=== PATIENT | male | born 1995 | race Caucasian/White ===

== ENCOUNTER 2023-01-17 09:37 | Emergency (ER) | payer MEDICAID, SELFPAY ==
--- NOTE | 2023-01-17 09:30 | RT.EKG_ITS ---
APPROVED REPORT Exam: Resting ECG Reason for Exam: chest pain Patient Location: E HR:70 bpm ECG Measurements Heart Rate 70 AXIS AZ 150 P 29 QRSd 90 QRS 81 QT 398 T 1 QTc 431 Conclusion Sinus rhythm...V-rate 60- [address] segment or T wave abnormalities to suggest occlusive CO
[2023-01-17 09:42] VITALS: BP 137/84; PULSE 53; RESP 15; TEMP 36.9; O2SAT 99
--- NOTE | 2023-01-17 09:49 | ED.GENADUL_ITS ---
Discharge Plan Disposition Patient Disposition: Home Condition: Good Discharge Details Clinical Impression: Chest pain Primary Care Provider: Unknown,Unknown ED Provider: Bouchra Mckeon Home Meds and New Rx's Prescriptions: Continued methylphenidate HCl 10 MG tablet 1 tab PO PRN Qty: 30 Patient Comments: no longer taking 01/17/23 CT Rx Instructions: 1 tablet in afternoon as needed for homework methylphenidate HCl [Concerta] 54 MG tablet extended release 24hr 1 tab PO DAILY Qty: 30 Patient Comments: No longer taking 01/17/23 CT Rx Instructions: 1 tab po qam Discharge Instructions Instructions: Chest Pain (ED) Additional Instructions: As we discussed, your EKG, chest x-ray and labs are reassuring here today. Please continue with your healthier diet and try to incorporate more protein options such as fish or chicken instead of just strictly red meat. Continue to encourage hydration. Please track your symptoms and try to find any type of triggers such as certain foods, certain activities, respiratory irritants versus other. You are welcome to go immediately [facility], I have called them and let them know that you may be coming over to discuss insurance. I have also asked her care management team to help with prompt follow-up with local primary care. If you develop any new or worsening symptoms please seek care urgently once again. I will call you with your cholesterol results once these have returned Discharge Data Discharge Date/Time-TO BE ENTERED AT DEPARTURE: 01/17/23 11:36 Medical Decision Making Patient is a pleasant 27-year-old male presenting today with chief complaint of left-sided chest pain that radiates into the left arm. He reports that he has had this discomfort intermittently for years but that it became much more consistent over the past 3 days and has not completely let up. It is worse with exertion, in particular when he is at work. He denies any cough. No increased pain with deep inspiration or cough. Denies any shortness of breath. No leg pain. No recent travel. No significant family cardiac history. He does not take any medications. He denies any cocaine or other illicit drug use. He is not an active smoker. He does occasionally consume alcohol. On exam, patient appears anxious but otherwise nontoxic. He is hemodynamically stable. No reproducible pain with palpation about the chest. No crepitus. Lungs are clear in all laird. Normal cardiac exam. No lower extremity edema. 2+ distal pulses, no calf tenderness. ECG was obtained, no acute ischemic changes. Reviewed by Dr. Mackey. While ACS is unlikely , he is having increased pain with exertion and is very anxious about this. Has been on keto diet x 6mo with 45lb weight loss. No shortness of breath and vital signs are not suggestive of a pulmonary embolism. He has no evidence to suggest dissection, infectious etiology. This could be musculoskeletal given what he does for work but he has not had any increased exertion or trauma. FINDINGS: 2 views: Heart size is normal.? The mediastinum is not widened. Lungs are clear.? No infiltrates nor pleural effusions. IMPRESSION: No acute pulmonary findings. Labs reviewed. No leukocytosis. Stable H&H. No significant abnormalities on CMP. Patient is requesting a total cholesterol. I also called [email or web address] initially, he had wanted to hold off on any accepts testing secondary to his lack of insurance but he specifically requesting this and knows the cost. We will add this on. We discussed that this could be anxiety driven. I encouraged that he keep a journal to see if this could also be associated with certain foods or exertion or other precipitating factors. We discussed his diet at length. He is very concerned that his keto diet could be driving him to have increased cholesterol that is causing his symptoms. We addressed these concerns at length. We discussed that his weight loss, increased blanced meals, are likely helping his overall cholesterol and I encouraged continued healthy lifestyle. Given his concerns, I did encourage increased fish/chicken, decreased red meat. Will call with cholesterol, this will not change acute management today. Also called [employer], they are expecting the atient to discuss insurance further. All of his questions and concerns were addressed. He is in agreement with this plan. Total cholesterol elevated at 281. I am hesitant to add on full lipid panel given cost, with his healthy lifestyle changes, I am curious what his HDL is. Have asked day time staff to call and discuss with patient and ensure he get f/u with PCP. HPI General Date/Time Provider Initiated Documentation: 01/17/23 09:39 . Limitations to Documentation: no limitations . Information obtained by: patient and RN notes reviewed . History of Present Illness 27 year old M presents to the emergency department with the chief complaint of chest pain, described as moderate and similar to prior episodes (reports he has had this intermittently for years), Quality is described as other (pressure), and is localized to the chest. Patient extremity (LUE). Patient started experiencing this day(s) (3) and it has been constant (has been intermittent past but currently is more constant). No relieving factors improve symptom(s), No exacerbating factors reported . Patient notes no other symptoms.. Patient did receive the following treatments prior to arrival, none Related Data Home Medications Medication Instructions Recorded Confirmed methylphenidate HCl 10 mg tablet 1 tab PO PRN #30 tabs 01/22/16 methylphenidate HCl 54 mg 1 tab PO DAILY #30 tab-caps 01/22/16 tablet,extended release 24 hr (Concerta) Allergies Allergy/AdvReac Type Severity Reaction Status Date / Time No Known Allergies Allergy Unverified 01/17/23 09:47 General Stated Complaint: Chest Pain CHIDI: 3 Review of Systems Constitutional Constitutional: Reports as per HPI, Denies chills, Denies fever(s), Denies headache(s), Denies lethargy and Denies poor appetite Eyes Eyes: Denies change in vision ENT Ears, Nose, Mouth, and Throat: Denies dizziness and Denies headache(s) Cardiovascular Cardiovascular: Reports as per HPI, Denies dyspnea and Denies dyspnea on exertion Respiratory Respiratory: Reports as per HPI, Denies chest congestion, Denies cough, Denies pain on inspiration, Denies dyspnea and Denies dyspnea on exertion Gastrointestinal Gastrointestinal: Reports as per HPI, Denies abdominal pain, Denies diarrhea, D enies nausea and Denies vomiting Genitourinary Genitourinary: Denies system reviewed and no additional complaints, except as documented (denies change in urinary habits) Musculoskeletal Musculoskeletal: Reports as per HPI and Denies back pain Integumentary/Breasts Skin/Breast: Reports as per HPI and Denies rash Neurologic Neurologic: Reports as per HPI, Denies dizziness and Denies headache(s) PFSH All Active Problems (Updated 01/17/23 @ 11:22 by BERKLEY Nix) Chest pain (Acute) Family History Mother Personal history of malignant neoplasm Cervical Father Diabetes Hyperlipidemia Sister No problems noted. Sister No problems noted. Sister No problems noted. Brother Diabetes Brother No problems noted. Other Substance abuse Social History Smoking/Tobacco Use Status: Never Smoking risk assessment performed?: Yes Alcohol Intake: current Alcohol Intake frequency: 3 or more drinks per day Alcohol type: beer Drug use: Never Substance use type: does not use Housing: apartment Do you feel safe at home: Yes Do you feel safe in your relationship?: Yes Exam Const General: cooperative, healthy appearing, comfortable, no acute distress and well developed Nutritional Appearance: average body habitus and well nourished Orientation: alert, awake and oriented x3 HENMT Head: normal to inspection Ears: hearing grossly normal bilaterally Mouth: moist mucous membranes Chest Chest: normal inspection of the chest, normal palpation of entire chest wall and no crepitus Resp Effort & Inspection: normal respiratory effort, able to speak in complete sentences and no respiratory distress Auscultation: clear to auscultation bilaterally, no rales, no rhonchi and no wheezes Cardio Rate: regular rate Rhythm: regular rhythm Heart Sounds: S1 normal and S2 normal GI Auscultation: normal bowel sounds Skin General skin exam: no rashes or lesions noted Trauma: no lacerations or abrasions Neuro General: patient alert, patient awake and patient oriented x3 Cognition: normal cognition Speech: speech normal Gait: normal gait Extrem General: normal to inspection, capillary refill normal, no pedal edema, no calf tenderness and normal gait Psych Appearance: grossly normal and well kempt Mental Status: mental status grossly normal Speech and Movement: speech and movement normal Course Vital Signs Vital signs: Vital Signs Temperature 36.9 C 01/17/23 09:42 Pulse 53 L 01/17/23 09:42 Respiratory Rate 15 01/17/23 09:42 Blood Pressure 137/84 01/17/23 09:42 Pulse Oximetry 99 01/17/23 09:42 Temperature 36.9 C 01/17/23 09:42 Temperature Source Oral 01/17/23 09:42 Pulse 53 L 01/17/23 09:42 Respiratory Rate 15 01/17/23 09:42 Respiratory Effort Non-Labored, Short of Breath 01/17/23 09:45 Blood Pressure 137/84 01/17/23 09:42 Blood Pressure Position Sitting 01/17/23 09:42 Pulse Oximetry 99 01/17/23 09:42 Oxygen Delivery Method Room Air 01/17/23 09:42 Oxygen Flow Rate 0 01/17/23 09:42 Pain Level 0 01/17/23 09:42 PAWSS Have you Been Recently Intoxicated or Drunk Within the Last 30 days?: Yes Have you Ever Experienced Previous Episodes of Alcohol Withdrawal?: No Have you ever Experienced Withdrawal Seizures?: No Have you ever Experienced Delirium Tremens(DT)s?: No Have you ever undergone Alcohol Rehabilitation Treatment (i.e, inpt ot outpatient treatment programs)?: No Have you ever Experienced Blackouts?: No Have you ever Combined Alcohol with other Downers within the last 90 days?: No Have you ever Combined Alcohol with any other Substance of Abuse during the last 90 days?: No Result: 1
[2023-01-17 10:17] LABS: Abs Immature Grans 0.02 10^3/uL (0.0-0.06); Absolute Basophil Count 0.03 10^3/uL (0.0-0.2); Absolute Eosinophil Count 0.08 10^3/uL (0.0-0.7); Absolute Lymphocyte Count 2.25 10^3/uL (1.2-3.4); Absolute Monocyte Count 0.52 10^3/uL (0.1-0.8); Absolute Neutrophil Count 3.02 10^3/uL (1.2-6.7); Basophils % 0.5; Eosinophils % 1.4; HCT 44.1 % (40.0-50.0); Immature Grans % 0.3; MCH 28.6 pg (27.0-33.0); MCV 84 fL (80-95); MPV 10.4 fL (8.0-11.0); Monocytes % 8.8; Platelet Count 213 10^3/uL (130-400); RBC 5.24 10^6/uL (4.36-5.78); RDW-SD 36.4 fL; WBC 5.92 10^3/uL (4.4-10.8)
--- NOTE | 2023-01-17 10:41 | DI.RAD_ITS ---
Exam(s) XR CHEST 2V PA LATERAL EXAM: XR CHEST 2V PA LATERAL CLINICAL HISTORY: CP, left arm pain. TECHNIQUE: 2D digital imaging was performed. COMPARISON: No exams were available for comparison FINDINGS: 2 views: Heart size is normal. The mediastinum is not widened. Lungs are clear. No infiltrates nor pleural effusions. IMPRESSION: No acute pulmonary findings. DATA REPOSITORY: RADIATION DOSE DELIVERED:
[2023-01-17 10:45] LABS: ALT 54 U/L (16-63); AST 18 U/L (15-37); Albumin 4.2 g/dL (3.4-5.0); Alkaline Phosphatase 91 U/L (46-116); Anion Gap 10.3 mmol/L (3-11); BUN 19 mg/dL (7-18); Bilirubin, Total 0.5 mg/dL (0.2-1.0); CO2 25.7 mmol/L (21.0-32.0); CREATININE 0.8 mg/dL (0.70-1.30); Calcium 9.2 mg/dL (8.5-10.1); Chloride 104 mmol/L (98-107); Glucose 112 mg/dL (74-106); Potassium 4.2 mmol/L (3.5-5.1); Sodium 140 mmol/L (136-145); Total Protein 7.5 g/dL (6.4-8.2); Troponin I < 50 ng/L (<or=60)
[2023-01-17] MEDS: Ibuprofen 600 MG TAB PO (10:59)
[2023-01-17 11:24] LABS: Cholesterol 281 mg/dL (<200)
--- NOTE | 2023-01-18 10:56 | NUR.NOTE ---
Nursing Note: in chart for referral check
--- NOTE | 2023-01-18 11:31 | W.EDPROG ---
Date of service: 01/18/23 Time of Service: 11:31 Medical Decision Making Care management called to verify PCP follow up and establishment of care. Spoke with Melissa Pacheco who will discuss with operations administrative assistant who tracks follow ups. Telephone Call made to patient to discuss elevated total cholesterol level, Voicemail box not set up unable to leave message. Discharge Plan Disposition Patient Disposition: Home Condition: Good Discharge Details Clinical Impression: Chest pain Primary Care Provider: Unknown,Unknown ED Provider: Bouchra Mckeon Home Meds and New Rx's Prescriptions: Continued methylphenidate HCl 10 MG tablet 1 tab PO PRN Qty: 30 Patient Comments: no longer taking 01/17/23 CT Rx Instructions: 1 tablet in afternoon as needed for homework methylphenidate HCl [Concerta] 54 MG tablet extended release 24hr 1 tab PO DAILY Qty: 30 Patient Comments: No longer taking 01/17/23 CT Rx Instructions: 1 tab po qam Discharge Instructions Instructions: Chest Pain (ED) Additional Instructions: As we discussed, your EKG, chest x-ray and labs are reassuring here today. Please continue with your healthier diet and try to incorporate more protein options such as fish or chicken instead of just strictly red meat. Continue to encourage hydration. Please track your symptoms and try to find any type of triggers such as certain foods, certain activities, respiratory irritants versus other. You are welcome to [facility], I have called them and let them know that you may be coming over to discuss insurance. I have also asked her care management team to help with prompt follow-up with local primary care. If you develop any new or worsening symptoms please seek care urgently once again. I will call you with your cholesterol results once these have returned Discharge Data Discharge Date/Time-TO BE ENTERED AT DEPARTURE: 01/17/23 11:36
== END 2023-01-17 11:36 | disposition home or self-care (01) ==
PROVIDERS: Emergency Provider Physician Assistant
DX: R07.9 Chest pain, unspecified (principal)
CPT/HCPCS: 36415; 80053; 93005; 99283; 71046; 82465; 84484; 85025; 93010

== ENCOUNTER 2023-10-19 08:13 | Emergency (ER) | payer MEDICAID, SELFPAY ==
[2023-10-19 08:14] VITALS: BP 153/78; PULSE 72; RESP 16; TEMP 37; O2SAT 98
--- NOTE | 2023-10-19 08:26 | W.ED.GENAD ---
Discharge Plan Disposition Patient Disposition: Home Condition: Stable Discharge Details Chief Complaint: RashLesion Clinical Impression: Tick bite ED Provider: Khalif Zuluaga Home Meds and New Rx's Prescriptions: No Action methylphenidate HCl 10 MG tablet 1 tab PO PRN Qty: 30 Patient Comments: no longer taking 01/17/23 CT Rx Instructions: 1 tablet in afternoon as needed for homework methylphenidate HCl [Concerta] 54 MG tablet extended release 24hr 1 tab PO DAILY Qty: 30 Patient Comments: No longer taking 01/17/23 CT Rx Instructions: 1 tab po qam Discharge Instructions Instructions: Tick Bite (ED) HPI General Date/Time Provider Initiated Documentation: 10/19/23 08:26. HPI Narrative: 27-year-old male noted embedded tick right chest wall, unclear how long it has been present. Related Data Home Medications Medication Instructions Recorded Confirmed methylphenidate HCl 10 mg tablet 1 tab PO PRN #30 tabs 01/22/16 methylphenidate HCl 54 mg 1 tab PO DAILY #30 tab-caps 01/22/16 tablet,extended release 24 hr (Concerta) Allergies Allergy/AdvReac Type Severity Reaction Status Date / Time No Known Allergies Allergy Unverified 10/19/23 08:19 General Stated Complaint: RashLesion CHIDI: 4 Review of Systems Narrative: Review of Systems Constitutional: negative Eyes: negative ENT: negative Cardiovascular: negative Respiratory: negative Gastrointestinal: negative : negative Musculoskeletal: negative Skin: Tick bite Neurologic: negative Psych: negative Exam Narrative Exam Narrative: Physical Examination General: alert, awake, cooperative, resting comfortably, no acute distress HEENT: normocephalic, atraumatic Skin: Small non engorged tick embedded right thoracic chest wall soft tissue, local erythema at site of attachment, no evidence of erythema migrans rash Neuro: AAOx3, normal speech, moving all extremities Course Vital Signs Vital signs: Vital Signs Temperature 37.0 C 10/19/23 08:14 Pulse 72 10/19/23 08:14 Respiratory Rate 16 10/19/23 08:14 Blood Pressure 153/78 H 10/19/23 08:14 Pulse Oximetry 98 10/19/23 08:14 Temperature 37.0 C 10/19/23 08:14 Temperature Source Skin 10/19/23 08:14 Pulse 72 10/19/23 08:14 Respiratory Rate 16 10/19/23 08:14 Blood Pressure 153/78 H 10/19/23 08:14 Blood Pressure Position Sitting 10/19/23 08:14 Pulse Oximetry 98 10/19/23 08:14 Oxygen Delivery Method Room Air 10/19/23 08:14 Oxygen Flow Rate 0 10/19/23 08:14 Pain Level 1 10/19/23 08:14 Medical Decision Making 27-year-old male presents with small and non engorged tick embedded right thoracic chest wall soft tissue, local irritation at bite site, no evidence of erythema migrans rash, afebrile nontoxic no systemic signs of illness, tick successfully removed with forceps, small amount of mouthparts still embedded in skin. Given the possibility that the tick has been present for greater than 36 hours patient given prophylactic dose of doxycycline 20 mg p.o. Given care instructions and strict return precautions. Patient will follow-up closely with primary care as needed. Quality:SDOH Health Related Social Needs: No Data to Display PFSH All Active Problems (Updated 10/19/23 @ 08:29 by Khalif Zuluaga MD) Tick bite (Acute) Family History (Updated 02/01/23 @ 11:06 by Jocelyn Irving) Mother Personal history of malignant neoplasm Cervical Father Diabetes Hyperlipidemia Brother Diabetes Alcohol use disorder Aunt Anxiety Maternal Grandmother Brain cancer Other Substance abuse Social History (Updated 02/01/23 @ 10:57 by Jocelyn Irving) Smoking/Tobacco Use Status: Former Tobacco Use Tobacco: How many years used: 4 Quit status: quit date established Smoking risk assessment performed?: Yes Alcohol Intake: current Alcohol Intake frequency: 3 or more drinks per day Alcohol type: beer Details: 2-3 times a week, 5-6 at a time, weekly more than 6. Drug use: Never Substance use type: does not use Adopted: No Caregiver/Support person: No Foster care: No Household members: spouse and children Housing: apartment Number of Children: 3 number of grandchildren: 0 Communication Needs: None Education Level: college Details: associated degree Do you need help understanding health information?: Never current occupation: Self- employed Pets and animals: No Sexually active: Yes Do you think of yourself as: straight/heterosexual Current gender identity: decline to answer What is your relationship status?: How often do you talk on the phone with friends or family?: three or more times per week How often do you get together with friends or relatives?: once per week Do you belong to any clubs or organized social groups?: no Panel score (0-1 are the most socially isolated patients): 2 What type of physical activity do you participate in: weight lifting Duration: > 90 minutes/day Frequency: 5-6 times per week Olivia/Presybeterian: Restorationist Special olivia needs: No Seatbelt use: sometimes Helmet use: No Drive intox or ride w/intox power truck driver: No Do you feel safe at home: Yes Do you feel safe in your relationship?: Yes
[2023-10-19] MEDS: Doxycycline Hyclate 100 MG CAP 200 MG PO (08:32)
== END 2023-10-19 08:43 | disposition home or self-care (01) ==
LOC: ER 08:39
PROVIDERS: Emergency Provider Emergency Medicine
DX: S20.361A Insect bite (nonvenomous) of right front wall of thorax, initial encounter (principal); W57.XXXA Bitten or stung by nonvenomous insect and other nonvenomous arthropods, initial encounter
CPT/HCPCS: 99283

== ENCOUNTER 2023-11-07 08:53 | Emergency (ER) | payer MEDICAID, SELFPAY ==
[2023-11-07 08:56] VITALS: BP 128/82; PULSE 74; RESP 14; TEMP 36.2; O2SAT 98
--- NOTE | 2023-11-07 09:00 | DI.RAD_ITS ---
Exam(s) XR ANKLE RT COMPLETE EXAM: XR ANKLE RT COMPLETE CLINICAL HISTORY: Ankle injury, swelling. TECHNIQUE: 2D digital imaging was performed of the right ankle. Three images were obtained. AP, la teral and oblique views were obtained. COMPARISON: No exams were available for comparison FINDINGS: BONES: No acute fracture is present. No bony destructive lesion is seen. There is a small enthesophy te at the posterior calcaneus. JOINTS: The ankle mortise is normally aligned. SOFT TISSUE: There is soft tissue swelling about the ankle particularly laterally. IMPRESSION: No acute fracture or dislocation. Soft tissue swelling of the ankle particularly laterally. DATA REPOSITORY: RADIATION DOSE DELIVERED:
--- NOTE | 2023-11-07 09:24 | ED.GENADUL_ITS ---
Discharge Plan Disposition Patient Disposition: Home Condition: Stable Discharge Details Clinical Impression: Moderate right ankle sprain Primary Care Provider: Unknown,Unknown ED Provider: Luh Mcdaniel Home Meds and New Rx's Prescriptions: New ibuprofen 600 mg tablet 600 mg PO Q8H MDD 3000 mg PRN (Reason: fever or pain) 7 Days Qty: 20 0RF Rx Instructions: Take 1 tablet by mouth with food as needed for pain every 8 hours Discharge Instructions Instructions: Ankle Sprain (ED) Additional Instructions: Rest ice compression elevation while sitting or laying down. At this time you have a sprained ankle. After 2 or 3 weeks if you are still having problems please call orthopedics to make an appointment. You are placed on a care management list they will call you if you need a sooner appointment. Follow up with primary care provider in 3-5 days if needed. Return to ED or orthopedics sooner if any worsening or concerns. Please take Tylenol or Ibuprofen with food as directed as needed for pain and swelling. Stand Alone Forms: Work Release Referrals: Luis Keenan MD [ [facility] STAFF PHYSICIAN] - Return if symptoms worsen HPI General Mode of arrival: ambulatory . Date/Time Provider Initiated Documentation: 11/07/23 08:55 . Limitations to Documentation: no limitations . Information obtained by: patient, RN notes reviewed and old records reviewed . HPI Narrative: 28-year-old male presents to the ER with chief complaint of right ankle pain. He rolled his right ankle yesterday while playing on a slip and slide with his kids. After rolling it he was able to ambulate on the ankle with some difficulty. He did ice it last night presented to work today and had increased pain and swelling. Took 600 mg ibuprofen prior to arrival. He does have ecchymosis noted on the lateral malleolus and tenderness. No history of ankle surgeries no proximal tenderness noted with palpation. No obvious deformity. Distal CMS intact. Related Data Home Medications Medication Instructions Recorded Confirmed ibuprofen 600 mg tablet 600 mg PO Q8H PRN fever or pain 7 11/07/23 days #20 tabs Previous Rx's Medication Instructions Recorded ibuprofen 600 mg tablet 600 mg PO Q8H PRN fever or pain 7 11/07/23 days #20 tabs Allergies Allergy/AdvReac Type Severity Reaction Status Date / Time No Known Allergies Allergy Unverified 11/07/23 09:01 General Stated Complaint: Orthopedic CHIDI: 4 Review of Systems ENT Ears, Nose, Mouth, and Throat: Denies neck pain Cardiovascular Cardiovascular: Reports system reviewed and no additional complaints, except as documented Respiratory Respiratory: Reports system reviewed and no additional complaints, except as documented Musculoskeletal Musculoskeletal: Reports as per HPI, Reports abnormal gait (Limping), Denies back pain, Denies atrophy, Denies deformity, Reports arthralgias, Reports joint swelling, Denies muscle cramps, Denies muscle weakness, Denies neck pain, Denies numbness and Reports stiffness Comments: Right ankle, Neurologic Neurologic: Reports abnormal gait (Limping) and Denies numbness Exam Neuro General: patient alert, patient awake, patient oriented x3 and moves all extremities Cognition: normal cognition Speech: speech normal Sensory Exam: no sensory deficits noted Extrem General: normal to inspection Right lower extremity: ankle Details: abnormal to inspection, tenderness, swelling Details: laterally, no edema, abnormal ROM and ecchymosis anterolateral ; no abrasions, no lacerations, no foreign bodies and no penetrating wound Left lower extremity: normal to inspection Course Vital Signs Vital signs: Vital Signs Temperature 36.2 C L 11/07/23 08:56 Pulse 74 11/07/23 08:56 Respiratory Rate 14 11/07/23 08:56 Blood Pressure 128/82 11/07/23 08:56 Pulse Oximetry 98 11/07/23 08:56 Temperature 36.2 C L 11/07/23 08:56 Temperature Source Temporal Artery Scan 11/07/23 08:56 Pulse 74 11/07/23 08:56 Respiratory Rate 14 11/07/23 08:56 Respiratory Effort Normal 11/07/23 09:03 Blood Pressure 128/82 11/07/23 08:56 Blood Pressure Position Sitting 11/07/23 08:56 Pulse Oximetry 98 11/07/23 08:56 Oxygen Delivery Method Room Air 11/07/23 08:56 Oxygen Flow Rate 0 11/07/23 08:56 Pain Level 6 11/07/23 08:56 Medical Decision Making 28-year-old male presents to the ER with chief complaint of right ankle pain. He rolled his right ankle yesterday while playing on a slip and slide with his kids. After rolling it he was able to ambulate on the ankle with some difficul ty. He did ice it last night presented to work today and had increased pain and swelling. Took 600 mg ibuprofen prior to arrival. He does have ecchymosis noted on the lateral malleolus and tenderness. No history of ankle surgeries no proximal tenderness noted with palpation. No obvious deformity. Distal CMS intact. X-ray right ankle ordered. Ice pack. Suspect moderate sprain. Differential diagnosis includes but not limited to occult fracture, fracture, ligament tear, sprain. Will give the patient an ankle stirrup lace up splint, discussed home care with him and follow-up care. Will place him on care management list for orthopedic if needed. Patient verbalized understanding. Discussed RICE procedures. Patient given splint and instructions by staff occupational therapist. This text was generated using [employer] dictation system, please disregard any oddities of phrase or misspellings. Imaging Data Radiologic Study: Imaging: X-Ray Radiologist's impression: EXAM: XR ANKLE RT COMPLETE CLINICAL HISTORY: Ankle injury, swelling. TECHNIQUE: 2D digital imaging was performed of the right ankle. Three images were obtained. AP, lateral and oblique views were obtained. COMPARISON: No exams were available for comparison FINDINGS: BONES: No acute fracture is present. No bony destructive lesion is seen. There is a small enthesophyte at the posterior calcaneus. JOINTS: The ankle mortise is normally aligned. SOFT TISSUE: There is soft tissue swelling about the ankle particularly laterally. IMPRESSION: No acute fracture or dislocation. Soft tissue swelling of the ankle particularly laterally. Core Measures Measure exclusions: not indicated Quality:SDOH Health Related Social Needs: No Data to Display PFSH All Active Problems (Updated 11/07/23 @ 09:51 by Luh Mcdaniel NP) Moderate right ankle sprain (Acute) Tick bite (Acute) Family History Mother Personal history of malignant neoplasm Cervical Father Diabetes Hyperlipidemia Brother Diabetes Alcohol use disorder Aunt Anxiety Maternal Grandmother Brain cancer Other Substance abuse Social History Smoking/Tobacco Use Status: Former Tobacco Use Tobacco: How many years used: 4 Quit status: quit date established Smoking risk assessment performed?: Yes Alcohol Intake: current Alcohol Intake frequency: 3 or more drinks per day Alcohol type: beer Details: 2-3 times a week, 5-6 at a time, weekly more than 6. Drug use: Never Substance use type: does not use Adopted: No Caregiver/Support person: No Foster care: No Household members: spouse and children Housing: apartment Number of Children: 3 number of grandchildren: 0 Communication Needs: None Education Level: college Details: associated degree Do you need help understanding health information?: Never current occupation: Self- employed Pets and animals: No Sexually active: Yes Do you think of yourself as: straight/heterosexual Current gender identity: decline to answer What is your relationship status?: How often do you talk on the phone with friends or family?: three or more times per week How often do you get together with friends or relatives?: once per week Do you belong to any clubs or organized social groups?: no Panel score (0-1 are the most socially isolated patients): 2 What type of physical activity do you participate in: weight lifting Duration: > 90 minutes/day Frequency: 5-6 times per week Olivia/Nondenominational: Mandaeism Special olivia needs: No Seatbelt use: sometimes Helmet use: No Drive intox or ride w/intox straight truck driver: No Do you feel safe at home: Yes Do you feel safe in your relationship?: Yes
== END 2023-11-07 10:14 | disposition home or self-care (01) ==
PROVIDERS: Emergency Provider Registered Nurse Emergency
DX: S93.401A Sprain of unspecified ligament of right ankle, initial encounter (principal); X50.1XXA Overexertion from prolonged static or awkward postures, initial encounter; Y93.01 Activity, walking, marching and hiking; Y92.098 Other place in other non-institutional residence as the place of occurrence of the external cause; Z87.891 Personal history of nicotine dependence
CPT/HCPCS: 99283; 73610

== ENCOUNTER 2025-02-18 17:58 | Emergency (ER) | payer MEDICAID, SELFPAY ==
--- NOTE | 2025-02-18 17:45 | RT.EKG_ITS ---
APPROVED REPORT Exam: Resting ECG Reason for Exam: chest pain Patient Location: E HR:64 bpm ECG Measurements Heart Rate 64 AXIS ME 150 P 16 QRSd 91 QRS 40 QT 395 T 48 QTc 407 Conclusion Sinus rhythm...normal P axis, V-rate 60- 99 Consider anteroseptal infarct...Q >30mS, dimin R, V1-V2
[2025-02-18 18:02] VITALS: BP 156/90; PULSE 71; RESP 18; TEMP 36.3; O2SAT 98
== END 2025-02-18 18:32 | disposition left against medical advice (07) ==
DX: Z53.21 Procedure and treatment not carried out due to patient leaving prior to being seen by health care provider (principal)
CPT/HCPCS: 93005; 93010